=== PATIENT | male | born 1980 | race Hispanic/Latino ===

== ENCOUNTER 2020-11-30 17:23 | Inpatient (IN) | payer SELFPAY ==
[2020-11-30 18:35] LABS: BASOPHILS % (AUTO) 0.5 % (0.0-5.0); EOSINOPHILS % (AUTO) 1.1 % (0.0-8.0); HEMATOCRIT 42.7 % (42-54); LYMPHOCYTES % (AUTO) 14.5 % (21.0-51.0); MEAN CORPUSCULAR HGB CONC 34.7 g/dL (32.0-36.0); MEAN CORPUSCULAR VOLUME 95.3 fL (79-99); MONOCYTES % (AUTO) 4.9 % (3.0-13.0); NEUTROPHILS % (AUTO) 78.8 % (40.0-77.0); PLATELET COUNT (AUTO) 204 K/uL (130-400); RED BLOOD CELL COUNT(AUTO) 4.48 MIL/uL (4.50-6.20); RED CELL DISTRIBUTION WIDTH 12.7 % (11.0-15.5); WHITE BLOOD COUNT (AUTO) 9.4 K/uL (4.8-10.8)
[2020-11-30 18:48] LABS: POTASSIUM 4.9 mmol/L (3.5-5.1)
[2020-11-30 18:50] LABS: INR 1.03 (0.85-1.15); PROTHROMBIN TIME 11.2 SEC (9.6-11.6)
[2020-11-30 18:52] LABS: PARTIAL THROMBOPLASTIN TIME 25.9 SEC (26.3-35.5)
[2020-11-30 18:53] LABS: ALBUMIN 4.4 g/dL (3.5-5.0); BILIRUBIN,TOTAL 0.7 mg/dL (0.2-1.0)
[2020-11-30] MEDS ORDERED: ONDANSETRON HCL 4 MG/2 ML VIAL ONE (20:41)
[2020-11-30] MEDS ORDERED: ZOSYN 3.375GM+NS 50ML 50 ML IV ONE (20:41)
[2020-11-30] MEDS ORDERED: MORPHINE SULFATE 4 MG/1ML SYG ONE (20:42)
[2020-11-30] MEDS ORDERED: SODIUM CHLORIDE 0.9% 100 ML IV ONE (20:43)
[2020-11-30] MEDS ORDERED: IOHEXOL-350 75 ML VIAL IV ONE (20:43)
[2020-11-30] MEDS ORDERED: MORPHINE SULFATE 2 MG/ML 1ML SYG IVP PRN (22:30)
[2020-11-30] MEDS ORDERED: ONDANSETRON HCL 4 MG/2 ML VIAL IV PRN (22:30)
[2020-11-30] MEDS ORDERED: SODIUM CHLORIDE 0.9% 1000ML 1,000 ML IV SCH (22:30)
[2020-12-01] MEDS ORDERED: ZOSYN 3.375GM+NS 50ML 50 ML IV ONE (05:05)
[2020-12-01] MEDS ORDERED: MORPHINE SULFATE 2 MG/ML 1ML SYG ONE ×2 (05:06→10:38)
[2020-12-01] MEDS ORDERED: SODIUM CHLORIDE 0.9% 100 ML IV ONE (05:06)
[2020-12-01 05:30] LABS: BASOPHILS % (AUTO) 0.7 % (0.0-5.0); HEMATOCRIT 41.5 % (42-54); LYMPHOCYTES % (AUTO) 33.6 % (21.0-51.0); MEAN CORPUSCULAR HEMOGLOBIN 31.7 pg (27.0-33.0); MEAN CORPUSCULAR HGB CONC 34.2 g/dL (32.0-36.0); MEAN CORPUSCULAR VOLUME 92.6 fL (79-99); MONOCYTES % (AUTO) 8.5 % (3.0-13.0); NEUTROPHILS % (AUTO) 54.1 % (40.0-77.0); PLATELET COUNT (AUTO) 200 K/uL (130-400); RED BLOOD CELL COUNT(AUTO) 4.48 MIL/uL (4.50-6.20); RED CELL DISTRIBUTION WIDTH 12.7 % (11.0-15.5); WHITE BLOOD COUNT (AUTO) 6.7 K/uL (4.8-10.8)
[2020-12-01 05:58] LABS: ALBUMIN 3.9 g/dL (3.5-5.0); BILIRUBIN,TOTAL 0.9 mg/dL (0.2-1.0); CREATININE 1.1 mg/dL (0.5-1.5); POTASSIUM 3.9 mmol/L (3.5-5.1); TOTAL PROTEIN, SERUM 7.3 g/dL (6.0-8.3)
[2020-12-01] MEDS ORDERED: FAMOTIDINE/PF 20 MG/2 ML VIAL IV SCH (09:59)
[2020-12-01] MEDS ORDERED: ZOSYN 3.375GM+NS 50ML 50 ML IV SCH (13:00)
== END 2020-12-01 13:10 | disposition left against medical advice (07) | DRG 395 ==
LOC: EDH 17:23 → EDHIP 17:24
PROVIDERS: ADMIT Internal Medicine; ATTEND Internal Medicine
DX: K61.1 Rectal abscess (principal); K64.5 Perianal venous thrombosis; Z20.822 Contact with and (suspected) exposure to COVID-19; Z53.29 Procedure and treatment not carried out because of patient's decision for other reasons; Z90.49 Acquired absence of other specified parts of digestive tract
CPT/HCPCS: 36415; 74177; 80053; 83605; 84145; 85025; 85610; 85730; 86140; 87040; 87426; G0378; J2270; J2405; J2543; Q9967; U0003

== ENCOUNTER 2020-12-08 16:23 | Inpatient (IN) | payer SELFPAY ==
[~2020-12-08] VITALS: Ht 180.3 cm; Wt 84.2 kg
[2020-12-08] MEDS ORDERED: LORAZEPAM 2 MG/ML 1 ML VIAL ONE ×3 (16:30→23:47)
[2020-12-08 17:06] LABS: BASOPHILS % (AUTO) 0.3 % (0.0-5.0); LYMPHOCYTES % (AUTO) 8.8 % (21.0-51.0); MEAN CORPUSCULAR HEMOGLOBIN 32.3 pg (27.0-33.0); MEAN CORPUSCULAR VOLUME 89.7 fL (79-99); MONOCYTES % (AUTO) 8.4 % (3.0-13.0); NEUTROPHILS % (AUTO) 82.1 % (40.0-77.0); PLATELET COUNT (AUTO) 248 K/uL (130-400); RED BLOOD CELL COUNT(AUTO) 4.46 MIL/uL (4.50-6.20); RED CELL DISTRIBUTION WIDTH 11.9 % (11.0-15.5); WHITE BLOOD COUNT (AUTO) 11.1 K/uL (4.8-10.8)
[2020-12-08 17:07] LABS: APPEARANCE,URINE Clear (CLEAR); BILIRUBIN,URINE Negative (NEGATIVE); COLOR,URINE Yellow (YELLOW); GLUCOSE, URINE (UA) Negative (NEGATIVE); KETONES,URINE 40 mg/dL (NEGATIVE); LEUKOCYTE ESTERASE ,URINE Small (NEGATIVE); NITRATE,URINE Negative (NEGATIVE); OCCULT BLOOD,URINE Moderate (NEGATIVE); PH,URINE 5.5 (5.0-8.0); PROTEIN,URINE Trace mg/dL (NEGATIVE)
[2020-12-08] MEDS ORDERED: SODIUM CHLORIDE 0.9% 1000ML 1,000 ML IV ONE ×3 (17:09→21:07)
[2020-12-08 17:14] LABS: AMPHET/METH SCREEN,URINE NEGATIVE (NEGATIVE); BARBITURATE SCREEN, URINE NEGATIVE (NEGATIVE); BENZODIAZEPINES SCREEN,URINE NEGATIVE (NEGATIVE); CANNABINOID SCREEN,URINE POSITIVE (NEGATIVE); COCAINE SCREEN,URINE POSITIVE (NEGATIVE); OPIATE SCREEN,URINE NEGATIVE (NEGATIVE); PHENCYCLIDINE SCREEN,URINE NEGATIVE (NEGATIVE)
[2020-12-08 17:30] LABS: ALBUMIN 4.2 g/dL (3.5-5.0); BILIRUBIN,TOTAL 1.3 mg/dL (0.2-1.0); CREATININE 1.3 mg/dL (0.5-1.5); POTASSIUM 3.6 mmol/L (3.5-5.1); TOTAL PROTEIN, SERUM 7.9 g/dL (6.0-8.3)
[2020-12-08 17:44] LABS: BACTERIA,URINE Few /HPF (None Seen)
[2020-12-08 17:46] LABS: SQUAMOUS EPITHELIAL CELL,UR Rare /HPF (0-2)
[2020-12-08] MEDS ORDERED: THIAMINE HCL 100 MG/ML 2ML VIAL ONE (21:09)
[2020-12-08] MEDS ORDERED: FOLIC ACID 5 MG/ML 10 ML VIAL ONE (21:11)
[2020-12-08] MEDS ORDERED: M.V.I. IV [ADULT] 10 ML VIAL IV ONE (21:13)
[2020-12-08] MEDS ORDERED: HALOPERIDOL LACTATE 5 MG/ML VIAL ONE (23:47)
[2020-12-09] MEDS ORDERED: DiphenhydrAMINE HCL 50 MG/ML VIAL ONE (00:02)
[2020-12-09] MEDS ORDERED: LORAZEPAM 2 MG/ML 1 ML VIAL ONE ×3 (00:09→00:39)
[2020-12-09] MEDS ORDERED: ZIPRASIDONE MESYLATE 20 MG/VIAL IM ONE (00:10)
[2020-12-09] MEDS ORDERED: HALOPERIDOL LACTATE 5 MG/ML VIAL ONE ×3 (00:28→05:52)
[2020-12-09] MEDS ORDERED: DIAZEPAM 5 MG/ML 2 ML SYG ONE ×2 (00:57→05:53)
[2020-12-09 02:13] LABS: AMPHET/METH SCREEN,URINE NEGATIVE (NEGATIVE); BARBITURATE SCREEN, URINE NEGATIVE (NEGATIVE); BENZODIAZEPINES SCREEN,URINE POSITIVE (NEGATIVE); CANNABINOID SCREEN,URINE POSITIVE (NEGATIVE); COCAINE SCREEN,URINE POSITIVE (NEGATIVE); OPIATE SCREEN,URINE NEGATIVE (NEGATIVE); PHENCYCLIDINE SCREEN,URINE NEGATIVE (NEGATIVE)
[2020-12-09] MEDS ORDERED: MAG HYDROX/AL HYDROX/SIMETH ES 30 ML SUSP UDCUP PO PRN (02:15)
[2020-12-09] MEDS ORDERED: LACTULOSE 20 GM/30 ML UDCUP PO PRN (02:15)
[2020-12-09] MEDS ORDERED: NITROGLYCERIN 0.4 MG SL TAB SL PRN (02:15)
[2020-12-09] MEDS ORDERED: DIPHENHYDRAMINE HCL 25 MG CAPSULE PO PRN (02:15)
[2020-12-09] MEDS ORDERED: ONDANSETRON HCL 4 MG/2 ML VIAL IV PRN (02:15)
[2020-12-09] MEDS ORDERED: GUAIFENESIN-DM 200/20 MG 10 ML PO PRN (02:15)
[2020-12-09] MEDS ORDERED: HYDRALAZINE HCL 20 MG/ML VIAL IV PRN (02:15)
[2020-12-09] MEDS: SODIUM CHLORIDE 0.9% 1000ML 1,000 ML IV SCH ×3 (02:15→22:15)
[2020-12-09] MEDS ORDERED: ALBUTEROL SULFATE 0.083% 2.5 MG/3 ML INH IH PRN (02:15)
[2020-12-09] MEDS ORDERED: ACETAMINOPHEN 325 MG TAB PO PRN (02:15)
[2020-12-09] MEDS ORDERED: LORAZEPAM 2 MG/ML 1 ML VIAL IM PRN (02:30)
[2020-12-09 03:11] LABS: BASOPHILS % (AUTO) 0.5 % (0.0-5.0); EOSINOPHILS % (AUTO) 0.1 % (0.0-8.0); HEMATOCRIT 34.7 % (42-54); LYMPHOCYTES % (AUTO) 14.4 % (21.0-51.0); MEAN CORPUSCULAR HEMOGLOBIN 33.1 pg (27.0-33.0); MEAN CORPUSCULAR HGB CONC 35.7 g/dL (32.0-36.0); MEAN CORPUSCULAR VOLUME 92.5 fL (79-99); MONOCYTES % (AUTO) 10.1 % (3.0-13.0); NEUTROPHILS % (AUTO) 74.7 % (40.0-77.0); PLATELET COUNT (AUTO) 197 K/uL (130-400); RED BLOOD CELL COUNT(AUTO) 3.75 MIL/uL (4.50-6.20); RED CELL DISTRIBUTION WIDTH 11.9 % (11.0-15.5); WHITE BLOOD COUNT (AUTO) 8.7 K/uL (4.8-10.8)
[2020-12-09 03:30] LABS: ALBUMIN 3.6 g/dL (3.5-5.0); BILIRUBIN,TOTAL 1.1 mg/dL (0.2-1.0); CREATININE 0.8 mg/dL (0.5-1.5); POTASSIUM 3.7 mmol/L (3.5-5.1); THYROID STIMULATING HORMONE 0.77 uIU/mL (0.36-3.74); TOTAL PROTEIN, SERUM 6.8 g/dL (6.0-8.3)
[2020-12-09] MEDS ORDERED: LORAZEPAM 2 MG/ML 1 ML VIAL IVP PRN (04:00)
[2020-12-09] MEDS ORDERED: CEFTRIAXONE SODIUM 500 MG VIAL ONE (08:28)
[2020-12-09] MEDS ORDERED: FAMOTIDINE/PF 20 MG/2 ML VIAL IV ONE ×2 (08:29→20:41)
[2020-12-09] MEDS ORDERED: SODIUM CHLORIDE 0.9% 1000ML 1,000 ML IV ONE ×2 (08:34→20:49)
[2020-12-09] MEDS: CEFTRIAXONE SODIUM 500 MG VIAL IV SCH (09:00)
[2020-12-09] MEDS ORDERED: HALOPERIDOL LACTATE 5 MG/ML VIAL IM SCH (11:48)
[2020-12-09] MEDS: LEVETIRACETAM 500 MG in SODIUM CHLORIDE 0.9% 100 ML IV SCH (21:00)
[2020-12-09] MEDS: FAMOTIDINE/PF 20 MG/2 ML VIAL IV SCH (21:00)
[2020-12-09 23:10] VITALS: BP 113/71
[2020-12-10] VITALS (10 sets, daily range): BP systolic 101–147; BP diastolic 46–90
[2020-12-10] MEDS: SODIUM CHLORIDE 0.9% 1000ML 1,000 ML IV SCH ×5 (05:44→18:15)
[2020-12-10] MEDS: FAMOTIDINE/PF 20 MG/2 ML VIAL IV SCH ×2 (07:52→20:27)
[2020-12-10] MEDS: CEFTRIAXONE SODIUM 500 MG VIAL IV SCH (07:53)
[2020-12-10] MEDS ORDERED: OLANZAPINE 10MG/ML 1ML VIAL IM SCH (08:00)
[2020-12-10] MEDS ORDERED: PHARMACY COMMUNICATION MISC PRN ×2 (08:00→13:00)
[2020-12-10] MEDS ORDERED: CHLORDIAZEPOXIDE HCL 25 MG CAP PO PRN ×2 (08:00→13:00)
[2020-12-10] MEDS: LEVETIRACETAM 500 MG in SODIUM CHLORIDE 0.9% 100 ML IV SCH ×2 (08:38→21:00)
[2020-12-10 08:48] LABS: MAGNESIUM 2.1 mg/dL (1.80-2.40); PHOSPHORUS 4.1 mg/dL (2.5-4.9)
[2020-12-10] MEDS: CHLORDIAZEPOXIDE HCL 25 MG CAP PO PRN ×5 (08:55→17:15)
[2020-12-10] MEDS ORDERED: HALOPERIDOL LACTATE 5 MG/ML VIAL IM SCH (11:00)
[2020-12-10] MEDS: LORAZEPAM 2 MG/ML 1 ML VIAL IVP PRN ×2 (12:55→16:51)
[2020-12-10] MEDS ORDERED: ONDANSETRON HCL 4 MG/2 ML VIAL IV PRN (13:00)
[2020-12-10] MEDS ORDERED: DiphenhydrAMINE HCL 50 MG/ML VIAL IM SCH ×2 (15:06→15:30)
[2020-12-10] MEDS ORDERED: DiphenhydrAMINE HCL 50 MG/ML VIAL IM PRN ×2 (15:15→21:15)
[2020-12-10] MEDS ORDERED: OLANZAPINE ODT 5 MG TAB SL SCH ×2 (15:15)
[2020-12-10] MEDS ORDERED: CLONAZEPAM 1 MG TABLET ONE (16:41)
[2020-12-10] MEDS ORDERED: CLONAZEPAM 1 MG TABLET PO STA (17:17)
[2020-12-10] MEDS: DEXMEDETOMIDINE HCL 400 MCG in SODIUM CHLORIDE 0.9% 100 ML IV SCH (20:47)
[2020-12-11] VITALS (24 sets, daily range): BP systolic 93–155; BP diastolic 48–84
[2020-12-11] MEDS: SODIUM CHLORIDE 0.9% 1000ML 1,000 ML IV SCH ×3 (02:50→04:15)
[2020-12-11] MEDS: DEXMEDETOMIDINE HCL 400 MCG in SODIUM CHLORIDE 0.9% 100 ML IV SCH (02:59)
[2020-12-11 04:01] LABS: EOSINOPHILS % (AUTO) 2.3 % (0.0-8.0); LYMPHOCYTES % (AUTO) 26.4 % (21.0-51.0); MEAN CORPUSCULAR HEMOGLOBIN 32.4 pg (27.0-33.0); MEAN CORPUSCULAR HGB CONC 34.6 g/dL (32.0-36.0); MEAN CORPUSCULAR VOLUME 93.7 fL (79-99); MONOCYTES % (AUTO) 10.5 % (3.0-13.0); NEUTROPHILS % (AUTO) 59.4 % (40.0-77.0); PLATELET COUNT (AUTO) 206 K/uL (130-400); RED BLOOD CELL COUNT(AUTO) 3.95 MIL/uL (4.50-6.20); WHITE BLOOD COUNT (AUTO) 7.1 K/uL (4.8-10.8)
[2020-12-11 04:34] LABS: ALBUMIN 3.3 g/dL (3.5-5.0); BILIRUBIN,TOTAL 0.6 mg/dL (0.2-1.0); POTASSIUM 3.8 mmol/L (3.5-5.1); TOTAL PROTEIN, SERUM 6.7 g/dL (6.0-8.3)
[2020-12-11] MEDS ORDERED: M.V.I. IV [ADULT] 10 ML, FOLIC ACID 1 MG, THIAMINE HCL 100 MG in SODIUM CHLORIDE 0.9% 1... IV SCH (08:00)
[2020-12-11] MEDS ORDERED: CEFTRIAXONE SODIUM 1 GM ONE (08:23)
[2020-12-11] MEDS: CEFTRIAXONE SODIUM 500 MG VIAL IV SCH (08:27)
[2020-12-11] MEDS: FAMOTIDINE/PF 20 MG/2 ML VIAL IV SCH ×2 (08:27→20:10)
[2020-12-11] MEDS: LACTATED RINGERS 1000ML 1,000 ML IV SCH ×2 (08:48→18:08)
[2020-12-11] MEDS ORDERED: CHLORDIAZEPOXIDE HCL 25 MG CAP PO SCH (09:00)
[2020-12-11] MEDS: LEVETIRACETAM 500 MG in SODIUM CHLORIDE 0.9% 100 ML IV SCH ×2 (09:05→20:10)
[2020-12-11] MEDS: ENOXAPARIN SODIUM 40 MG/0.4 ML SYRINGE SQ SCH (09:07)
[2020-12-11] MEDS: CHLORDIAZEPOXIDE HCL 25 MG CAP PO SCH ×2 (14:23→20:10)
[2020-12-11 15:14] LABS: ABG BASE EXCESS -0.7 mmol/L (-2.0-3.0); ABG HCO3 20.9 mmol/L (21.0-28.0); ABG OXYGEN SATURATION 97.8 % (95.0-99.0); ABG PCO2 27 mmHg (35-48)
[2020-12-11 15:50] LABS: CREATININE 0.9 mg/dL (0.5-1.5); POTASSIUM 3.9 mmol/L (3.5-5.1)
[2020-12-12] VITALS (16 sets, daily range): BP systolic 91–151; BP diastolic 38–86
[2020-12-12] MEDS: LACTATED RINGERS 1000ML 1,000 ML IV SCH (03:41)
[2020-12-12 04:00] LABS: BASOPHILS % (AUTO) 0.7 % (0.0-5.0); HEMATOCRIT 36.5 % (42-54); LYMPHOCYTES % (AUTO) 24.4 % (21.0-51.0); MEAN CORPUSCULAR HEMOGLOBIN 31.9 pg (27.0-33.0); MEAN CORPUSCULAR HGB CONC 34.5 g/dL (32.0-36.0); MEAN CORPUSCULAR VOLUME 92.4 fL (79-99); NEUTROPHILS % (AUTO) 60.5 % (40.0-77.0); PLATELET COUNT (AUTO) 246 K/uL (130-400); RED BLOOD CELL COUNT(AUTO) 3.95 MIL/uL (4.50-6.20); RED CELL DISTRIBUTION WIDTH 11.7 % (11.0-15.5); WHITE BLOOD COUNT (AUTO) 7.3 K/uL (4.8-10.8)
[2020-12-12 04:18] LABS: ALBUMIN 3.1 g/dL (3.5-5.0); BILIRUBIN,TOTAL 0.3 mg/dL (0.2-1.0); CREATININE 0.9 mg/dL (0.5-1.5); TOTAL PROTEIN, SERUM 6.5 g/dL (6.0-8.3)
[2020-12-12 05:54] LABS: POTASSIUM 3.5 mmol/L (3.5-5.1)
[2020-12-12] MEDS ORDERED: CEFTRIAXONE SODIUM 1 GM ONE (08:19)
[2020-12-12] MEDS: MULTIVITAMIN TABLET PO SCH (08:36)
[2020-12-12] MEDS: FOLIC ACID 1 MG TABLET PO SCH (08:36)
[2020-12-12] MEDS: ENOXAPARIN SODIUM 40 MG/0.4 ML SYRINGE SQ SCH (08:36)
[2020-12-12] MEDS: CEFTRIAXONE SODIUM 500 MG VIAL IV SCH (08:36)
[2020-12-12] MEDS: FAMOTIDINE/PF 20 MG/2 ML VIAL IV SCH ×2 (08:36→20:25)
[2020-12-12] MEDS: THIAMINE HCL 100 MG TABLET PO SCH (08:36)
[2020-12-12] MEDS: CHLORDIAZEPOXIDE HCL 25 MG CAP PO SCH ×3 (08:36→20:25)
[2020-12-12] MEDS: LEVETIRACETAM 500 MG in SODIUM CHLORIDE 0.9% 100 ML IV SCH ×2 (10:05→20:25)
[2020-12-12] MEDS ORDERED: LORAZEPAM 2 MG/ML 1 ML VIAL IVP PRN (11:00)
[2020-12-12] MEDS ORDERED: HYDRALAZINE HCL 20 MG/ML VIAL IV PRN (14:15)
[2020-12-13 03:00] VITALS: BP 100/54
[2020-12-13 03:51] LABS: BASOPHILS % (AUTO) 0.7 % (0.0-5.0); EOSINOPHILS % (AUTO) 4.7 % (0.0-8.0); HEMATOCRIT 36.8 % (42-54); LYMPHOCYTES % (AUTO) 27.2 % (21.0-51.0); MEAN CORPUSCULAR HEMOGLOBIN 32.5 pg (27.0-33.0); MEAN CORPUSCULAR HGB CONC 34.8 g/dL (32.0-36.0); MEAN CORPUSCULAR VOLUME 93.4 fL (79-99); MONOCYTES % (AUTO) 8.7 % (3.0-13.0); NEUTROPHILS % (AUTO) 58.3 % (40.0-77.0); PLATELET COUNT (AUTO) 248 K/uL (130-400); RED BLOOD CELL COUNT(AUTO) 3.94 MIL/uL (4.50-6.20); RED CELL DISTRIBUTION WIDTH 11.7 % (11.0-15.5); WHITE BLOOD COUNT (AUTO) 8.1 K/uL (4.8-10.8)
[2020-12-13 04:03] LABS: ALBUMIN 3.2 g/dL (3.5-5.0); BILIRUBIN,TOTAL 0.3 mg/dL (0.2-1.0); CREATININE 1.2 mg/dL (0.5-1.5); POTASSIUM 3.4 mmol/L (3.5-5.1); TOTAL PROTEIN, SERUM 6.6 g/dL (6.0-8.3)
[2020-12-13 08:00] VITALS: BP 121/59
[2020-12-13] MEDS: THIAMINE HCL 100 MG TABLET PO SCH (09:05)
[2020-12-13] MEDS: MULTIVITAMIN TABLET PO SCH (09:05)
[2020-12-13] MEDS: ENOXAPARIN SODIUM 40 MG/0.4 ML SYRINGE SQ SCH (09:05)
[2020-12-13] MEDS: LEVETIRACETAM 500 MG in SODIUM CHLORIDE 0.9% 100 ML IV SCH ×2 (09:05→20:29)
[2020-12-13] MEDS: FOLIC ACID 1 MG TABLET PO SCH (09:06)
[2020-12-13] MEDS: CHLORDIAZEPOXIDE HCL 25 MG CAP PO SCH ×3 (09:06→19:57)
[2020-12-13] MEDS: FAMOTIDINE/PF 20 MG/2 ML VIAL IV SCH ×2 (09:06→19:57)
[2020-12-13 11:09] VITALS: BP 147/88
[2020-12-13] MEDS ORDERED: COMPOUND IV MISC 1 EACH IVSOLN MISC PRN (11:30)
[2020-12-13 13:14] LABS: POTASSIUM 4.5 mmol/L (3.5-5.1)
[2020-12-13 15:13] VITALS: BP 142/88
[2020-12-13 20:00] VITALS: BP 136/82
[2020-12-14] VITALS: BP 132/80
[2020-12-14 04:00] VITALS: BP 133/79
[2020-12-14 05:59] LABS: HEMATOCRIT 36.7 % (42-54); MEAN CORPUSCULAR HEMOGLOBIN 32.4 pg (27.0-33.0); MEAN CORPUSCULAR HGB CONC 34.6 g/dL (32.0-36.0); MEAN CORPUSCULAR VOLUME 93.6 fL (79-99); RED BLOOD CELL COUNT(AUTO) 3.92 MIL/uL (4.50-6.20); RED CELL DISTRIBUTION WIDTH 11.9 % (11.0-15.5)
[2020-12-14 06:11] LABS: CREATININE 1.1 mg/dL (0.5-1.5); POTASSIUM 4.1 mmol/L (3.5-5.1)
[2020-12-14 07:00] VITALS: BP_SYST 130; BP_SYST 158; BP_DIAS 81; BP_DIAS 97
[2020-12-14] MEDS: MULTIVITAMIN TABLET PO SCH (10:20)
[2020-12-14] MEDS: FOLIC ACID 1 MG TABLET PO SCH (10:20)
[2020-12-14] MEDS: THIAMINE HCL 100 MG TABLET PO SCH (10:20)
[2020-12-14] MEDS: CHLORDIAZEPOXIDE HCL 25 MG CAP PO SCH (10:20)
[2020-12-14] MEDS: FAMOTIDINE/PF 20 MG/2 ML VIAL IV SCH (10:21)
[2020-12-14] MEDS: ENOXAPARIN SODIUM 40 MG/0.4 ML SYRINGE SQ SCH (10:28)
[2020-12-14] MEDS ORDERED: THIA100T91 PO (11:05)
[2020-12-14] MEDS ORDERED: LIB25 PO (11:05)
[2020-12-14] MEDS ORDERED: FOLI1 PO (11:05)
[2020-12-14] MEDS: LEVETIRACETAM 500 MG in SODIUM CHLORIDE 0.9% 100 ML IV SCH (11:07)
[2020-12-14 11:42] VITALS: BP 136/89
== END 2020-12-14 13:00 | disposition home or self-care (01) | DRG 897 ==
LOC: EDH 16:23 → EDHIP 16:24 → 3CH 12-09 21:22 → 2CH 12-10 20:33 → 2DH 12-12 15:58
PROVIDERS: ADMIT Internal Medicine; ATTEND Internal Medicine
DX: F19.959 Other psychoactive substance use, unspecified with psychoactive substance-induced psychotic disorder, unspecified (principal); N39.0 Urinary tract infection, site not specified; F23 Brief psychotic disorder; M62.82 Rhabdomyolysis; F10.231 Alcohol dependence with withdrawal delirium; G40.909 Epilepsy, unspecified, not intractable, without status epilepticus; F13.10 Sedative, hypnotic or anxiolytic abuse, uncomplicated; F14.10 Cocaine abuse, uncomplicated; F12.10 Cannabis abuse, uncomplicated; F17.200 Nicotine dependence, unspecified, uncomplicated; F41.9 Anxiety disorder, unspecified
CPT/HCPCS: 36415; 36600; 70450; 71045; 80048; 80053; 80305; 81001; 82140; 82550; 82803; 82948; 83605; 83735; 84100; 84145; 84443; 85025; 85027; 87040; 87088; 87426; 93005; 94664; 99291; 99292; G0378; J0696; J1200; J1630; J1650; J1953; J2060; J3360; J3411; J3486; J3490; J7030; U0003